=== PATIENT | female | born 1990 | race Caucasian/White ===

== ENCOUNTER 2016-04-08 11:19 | Emergency (ER) | payer MEDICAID, OTHER ==
[2016-04-08 13:42] VITALS: BP 111/67
== END 2016-04-08 17:25 | disposition home or self-care (01) ==
LOC: ED 11:19
DX: K08.89 Other specified disorders of teeth and supporting structures (principal)
CPT/HCPCS: 99281

== ENCOUNTER 2016-04-08 17:25 | Emergency (ER) | payer OTHER ==
[2016-04-08 18:54] VITALS: BP 117/79
== END 2016-04-08 18:00 | disposition left against medical advice (07) ==
LOC: ED 17:25
DX: K08.89 Other specified disorders of teeth and supporting structures (principal); Z53.21 Procedure and treatment not carried out due to patient leaving prior to being seen by health care provider
CPT/HCPCS: 99282

== ENCOUNTER 2016-04-09 09:08 | Emergency (ER) | payer OTHER ==
[2016-04-09] MEDS ORDERED: traMADol TAB* 50 MG PO ONE (10:09)
[2016-04-09] MEDS ORDERED: Penicillin VK TAB* 250 MG PO ONE (10:09)
--- NOTE | 2016-04-09 10:28 | ED ---
Throat Pain/Nasal Congestion - HPI Summary HPI Summary: Patient fractured her right upper molar 5 days ago and now has a foul taste in her mouth with pain. She has an appointment with her dentist in 6 days but worries she has an infection. She feels mildly ill, but denies fever, chills, N/ V/D. She does have a cold so it is hard for her to tell what is making her feel ill. She has pain when chewing, and mild swelling. No difficulty swallowing. - History of Current Complaint Chief Complaint: EDDentalPain Time Seen by Provider: 04/09/16 09:44 Hx Obtained From: Patient Onset/Duration: Sudden Onset, Lasting Days, Still Present Severity: Moderate Associated Signs And Symptoms: Positive: Negative Cough: None - Allergies/Home Medications Allergies/Adverse Reactions: Allergies Allergy/AdvReac Type Severity Reaction Status Date / Time No Known Allergies Allergy Verified 12/16/15 18:34 PMH/Surg Hx/FS Hx/Imm Hx Endocrine/Hematology History: Denies: Hx Anticoagulant Therapy, Hx Blood Disorders, Hx Diabetes, Hx Thyroid Disease, Hx Unexplained Bleeding Cardiovascular History: Denies: Hx Hypertension, Hx Pacemaker/ICD Respiratory History: Denies: Hx Asthma, Hx Chronic Obstructive Pulmonary Disease (COPD) GI History: Reports: Hx Crohn's Disease Denies: Hx Ulcer History: Denies: Hx Renal Disease Musculoskeletal History: Reports: Hx Arthritis - RA Psychiatric History: Denies: Hx Panic Disorder Infectious Disease History: No Infectious Disease History: Denies: Hx Hepatitis, Hx Human Immunodeficiency Virus (HIV), Traveled Outside the [place] in Last 30 Days - Family History Known Family History: Positive: None, Other - Grandmother has a history of RA. Family History: Grandmother - RA. - Social History Occupation: Employed Full-time Lives: With Family Alcohol Use: Rare Hx Substance Use: Yes Substance Use Type: Reports: None Hx Tobacco Use: No Smoking Status (MU): Current Every Day Smoker Type: Cigarettes Amount Used/How Often: 2-3 CIGS PER YR Length of Time of Smoking/Using Tobacco: 3 YR Have You Smoked in the Last Year: Yes Cessation Counseling: Patient Advised to Stop Review of Systems Negative: Fever, Chills Positive: Dental Pain. Negative: Sore Throat, Ear Ache All Other Systems Reviewed And Are Negative: Yes Physical Exam Triage Information Reviewed: Yes Vital Signs On Initial Exam: Initial Vitals Temp Pulse Resp BP Pulse Ox 98.7 F 105 16 116/76 100 04/09/16 09:15 04/09/16 09:15 04/09/16 09:15 04/09/16 09:15 04/09/16 09:15 Vital Signs Reviewed: Yes Appearance: Positive: Well-Appearing, Well-Nourished, Pain Distress Skin: Positive: Warm, Skin Color Reflects Adequate Perfusion, Dry, Soft Head/Face: Positive: Normal Head/Face Inspection Eyes: Positive: EOMI, GERA, Conjunctiva Clear ENT: Positive: Hearing grossly normal, Pharynx normal. Negative: Tonsillar swelling Dental: Positive: Percussion Tenderness @ - right upper wisdom tooth, Dental Fracture @ - right upper wisdon tooth. Negative: Abscess @, Cervical Lymphadenopathy Neck: Positive: Supple, Nontender, No Lymphadenopathy Respiratory/Lung Sounds: Positive: Breath Sounds Present Cardiovascular: Positive: RRR Neurological: Positive: Sensory/Motor Intact, Alert, Oriented to Person Place, Time, NV Bundle Intact Distally Psychiatric: Positive: Affect/Mood Appropriate AVPU Assessment: Alert Diagnostics - Vital Signs Vital Signs Temp Pulse Resp BP Pulse Ox 04/09/16 09:15 98.7 F 105 16 116/76 100 - Laboratory Lab Statement: Any lab studies that have been ordered have been reviewed, and results considered in the medical decision making process. EENT Course/Dx - Differential Diagnoses Differential Diagnoses: Dental Abscess, Dental Caries, Fractured Tooth, Odontogenic Pain, Periodontic Abscess, Periodontic Disease - Diagnoses Provider Diagnoses: Odontalgia, Tooth fracture Discharge - Discharge Plan Condition: Stable Disposition: HOME Prescriptions: Penicillin VK TAB* [Penicillin VK 250 mg Tab*] 500 mg PO QID #78 tab traMADol TAB* [Ultram*] 50 mg PO Q12H PRN #4 tab MDD 2 PRN Reason: Pain Patient Education Materials: Toothache (ED) Referrals: Milton Cunha MD [Primary Care Provider] - Additional Instructions: Please take your antibiotic until it is completely gone. Continue taking 800mg of ibuprofen three times daily with meals for the next 3-5 days and add Tramadol if you still have pain. Follow-up with your dentist as scheduled.
[2016-04-09 10:56] VITALS: BP 122/70
== END 2016-04-09 10:54 | disposition home or self-care (01) ==
LOC: ED 09:08
DX: S02.5XXA Fracture of tooth (traumatic), initial encounter for closed fracture (principal); X58.XXXA Exposure to other specified factors, initial encounter; Y92.9 Unspecified place or not applicable
CPT/HCPCS: 99281; A9270-GY

== ENCOUNTER 2019-04-04 12:13 | Emergency (ER) | payer OTHER, MEDICAID ==
[2019-04-04 13:38] VITALS: BP 131/70
--- NOTE | 2019-04-04 16:34 | ED ---
Throat Pain/Nasal Congestion - HPI Summary HPI Summary: Patient is a 28-year-old female who presents emergency department for ongoing dental pain. Patient states she's been having issues with her top right last molar for several years. Patient notes pain increased over the last few days. She denies fever, facial swelling, difficulty swallowing. No significant past medical history. Symptoms are mild in severity. Touching area makes symptoms worse. Nothing makes symptoms better. Pt notes she recently got dental insurance and is planning on going to [facility]. - History of Current Complaint Chief Complaint: EDDentalPain Time Seen by Provider: 04/04/19 12:55 Hx Obtained From: Patient - Allergies/Home Medications Allergies/Adverse Reactions: Allergies Allergy/AdvReac Type Severity Reaction Status Date / Time No Known Allergies Allergy Verified 04/04/19 12:22 PMH/Surg Hx/FS Hx/Imm Hx Previously Healthy: Yes Endocrine/Hematology History: Denies: Hx Anticoagulant Therapy, Hx Blood Disorders, Hx Diabetes, Hx Thyroid Disease, Hx Unexplained Bleeding Cardiovascular History: Denies: Hx Hypertension, Hx Pacemaker/ICD Respiratory History: Denies: Hx Asthma, Hx Chronic Obstructive Pulmonary Disease (COPD) GI History: Reports: Hx Crohn's Disease Denies: Hx Ulcer History: Denies: Hx Renal Disease Musculoskeletal History: Reports: Hx Arthritis - RA Psychiatric History: Denies: Hx Panic Disorder Infectious Disease History: No Infectious Disease History: Denies: Hx Hepatitis, Hx Human Immunodeficiency Virus (HIV), Traveled Outside the [place] in Last 30 Days - Family History Known Family History: Positive: None, Other - Grandmother has a history of RA., Non-Contributory Family History: Grandmother - RA. - Social History Occupation: Unemployed Lives: With Family Alcohol Use: Rare Hx Substance Use: Yes Substance Use Type: Reports: None Hx Tobacco Use: No Smoking Status (MU): Current Every Day Smoker Type: Cigarettes Amount Used/How Often: 2-3 CIGS PER YR Length of Time of Smoking/Using Tobacco: 3 YR Have You Smoked in the Last Year: Yes Review of Systems Constitutional: Negative Negative: Fever Positive: Dental Pain Neurological: Negative All Other Systems Reviewed And Are Negative: Yes Physical Exam Triage Information Reviewed: Yes Vital Signs On Initial Exam: Initial Vitals Temp Pulse Resp BP Pulse Ox 98.5 F 111 18 146/89 99 04/04/19 12:19 04/04/19 12:19 04/04/19 12:19 04/04/19 12:19 04/04/19 12:19 Vital Signs Reviewed: Yes Appearance: Positive: Well-Appearing - Pt. sitting on bed in NAD. Family present. Skin: Positive: Warm, Dry Head/Face: Positive: Normal Head/Face Inspection Eyes: Positive: Normal, EOMI, GERA, Conjunctiva Clear Dental: Positive: Other - Poor dentition throughout. Numerous areas of decay. Pain to top last right molar with fx and decay. No drainable abscess. No facial/ submandibular edema. No trismus. Neck: Positive: Supple, Nontender, No Lymphadenopathy Neurological: Positive: Normal, CN Intact II-III Psychiatric: Positive: Affect/Mood Appropriate Procedures - Sedation Patient Received Moderate/Deep Sedation with Procedure: No Diagnostics - Vital Signs Vital Signs Temp Pulse Resp BP Pulse Ox 04/04/19 13:37 98.6 F 97 19 131/70 100 04/04/19 12:19 98.5 F 111 18 146/89 99 - Laboratory Lab Statement: Any lab studies that have been ordered have been reviewed, and results considered in the medical decision making process. EENT Course/Dx - Course Course Of Treatment: Patient with complaints of didn't pain. Dental pain. Numerous areas of dental decay on exam. No drainable abscess or evidence of Tu angina. Patient prescribed penicillin and naproxen. Advised to see a dentist as soon as possible. Return to the ER symptoms change or worsen. Patient understands and agrees with plan. - Differential Diagnoses Differential Diagnoses: Dental Abscess, Fractured Tooth, Gingivitis, Tu's Angina - Diagnoses Provider Diagnoses: Dental decay Discharge ED - Sign-Out/Discharge Documenting (check all that apply): Patient Departure - Discharge Plan Condition: Good Disposition: HOME Prescriptions: Naproxen [Naprosyn 500 mg tab] 500 mg PO BID #20 tablet Penicillin VK 500 MG TAB(NF) [Penicillin VK 500 mg Tab] 500 mg PO QID #40 tab Patient Education Materials: Dental Abscess (ED) Referrals: Milton Cunha MD [Primary Care Provider] - Additional Instructions: Please see a dentist as soon as possible Medication as directed Return to ER if symptoms change or worsen - Billing Disposition and Condition Condition: GOOD Disposition: Home
== END 2019-04-04 13:34 | disposition home or self-care (01) ==
LOC: ED 12:13
DX: K02.9 Dental caries, unspecified (principal); F17.210 Nicotine dependence, cigarettes, uncomplicated
CPT/HCPCS: 99282